=== PATIENT | male | born 1955 | race American Indian/Alaskan Native ===

== ENCOUNTER 2021-05-01 08:00 | Outpatient (CLI) | payer OTHER | END 2021-05-01 08:30 | disposition home or self-care (01) | LOC: PPH VACUNA 08:00 | PROVIDERS: ATTEND Emergency Medicine Pediatric Emergency Medicine | DX: Z23 Encounter for immunization (principal) ==

== ENCOUNTER 2024-09-11 05:30 | Day surgery (SDC) | payer OTHER ==
[2024-09-02 10:46] VITALS: BP 156/90
[~2024-09-11] VITALS: Ht 170.2 cm; Wt 72.1 kg
[~2024-09-11 05:30] MED LIST: ROSUVASTATIN CA10 MG PO
[2024-09-11] MEDS ORDERED: DIBUCAINE 30 GM TUBE ONE (06:59)
[2024-09-11] MEDS ORDERED: HEMOSTATIC MATRIX 1 KIT KIT TOP ONE (06:59)
[2024-09-11] MEDS ORDERED: LIDOCAINE HCL 1%/EPINEPHRINE 20ML VIAL IJ ONE (07:00)
[2024-09-11] MEDS ORDERED: METRONIDAZOLE/SODIUM CHLORIDE 500 MG/100 ML PIGGYBACK IV ONE (07:00)
[2024-09-11] MEDS ORDERED: CEFTRIAXONE SODIUM 2,000 MG VIAL ONE (07:00)
[2024-09-11] MEDS ORDERED: BUPIVACAINE HCL/MPF 0.5% 30ML VIAL ONE (07:00)
[2024-09-11] MEDS ORDERED: POVIDONE-IODINE 118 ML BOTT TOP ONE (07:00)
[2024-09-11] MEDS ORDERED: OXYCODONE HCL5 MG PO (08:07)
[2024-09-11] MEDS ORDERED: TAMSULOSIN HCL 0.4 MG CAP PO ONE ×2 (08:15→09:58)
== END 2024-09-11 14:35 | disposition home or self-care (01) ==
LOC: CIR.AMB 05:30
PROVIDERS: ATTEND Surgery
DX: K64.2 Third degree hemorrhoids (principal); K64.4 Residual hemorrhoidal skin tags; E78.5 Hyperlipidemia, unspecified